=== PATIENT | male | born 1985 | race American Indian/Alaskan Native ===

== ENCOUNTER 2017-07-15 01:36 | Emergency (ER) | payer SELFPAY ==
--- NOTE | 2017-07-15 04:20 | XRay Report ---
FINAL REPORT PROCEDURE: XR CHEST ROUTINE 2V TECHNIQUE: PA and lateral chest radiographs were obtained. CPT 93376 HISTORY: chest injury COMPARISON: No prior studies are available for comparison. FINDINGS: Heart: Normal. Mediastinum/Vessels: Normal. Lungs/Pleural space: Normal. Bony thorax: No acute osseous abnormality. Other: IMPRESSION: Normal examination.
--- NOTE | 2017-07-15 07:51 | Emergency Department Report ---
HPI - General Chief Complaint: Chest Pain Time Seen by Provider: 07/15/17 07:36 - HPI HPI: This is a 32 year-old male presents to the emergency department with complaint of a four-day history of pain to the right lower anterior chest, around the area of "my floating rib" that he says feels like it is fractured but also has been dislocating. He says that he feels a pop when he does certain movements and then has extreme pain. He has a stretcher certain way and it will pop back into place. He has a history of right rib injury from 2 years ago. 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 He denies any shortness of breath, fever, nausea, vomiting. He does not have any other past medical history. He does not have a primary care physician. He has been using ice but otherwise has not taken any medication for his symptoms. ED Past Medical Hx - Past Medical History Previous Medical History?: No - Surgical History Past Surgical History?: No - Social History Smoking Status: Never Smoker Substance Use Type: None ED Review of Systems ROS: Stated complaint: RIB INJURY Other details as noted in HPI Comment: All other systems reviewed and negative Constitutional: denies: chills, fever Eyes: denies: eye pain, eye discharge, vision change ENT: denies: ear pain, throat pain Respiratory: denies: cough, shortness of breath, wheezing Cardiovascular: chest pain (right lower rib pain). denies: edema Gastrointestinal: denies: abdominal pain, nausea, diarrhea Genitourinary: denies: urgency, dysuria Musculoskeletal: denies: back pain, joint swelling, arthralgia Skin: denies: rash, lesions Neurological: denies: headache, weakness, paresthesias Physical Exam - Physical Exam Vital Signs: Vital Signs 07/15/17 02:59 Temperature 97.9 F Pulse Rate 64 Blood Pressure 122/81 O2 Sat by Pulse 98 Oximetry Physical Exam: GENERAL: The patient is well-developed well-nourished. HENT: Normocephalic. Atraumatic. Patient has moist mucous membranes. EYES: Extraocular motions are intact. Pupils equal reactive to light bilaterally. NECK: Supple. Trachea is midline. CHEST/LUNGS: Clear to auscultation. There is no respiratory distress noted. Unable to reproduce the patient's right lower rib pain to palpation. HEART/CARDIOVASCULAR: Regular. There is no tachycardia. There is no murmur. ABDOMEN: Abdomen is soft, nontender. Patient has normal bowel sounds. There is no abdominal distention. SKIN: Skin is warm and dry. NEURO: The patient is awake, alert, and oriented. The patient is cooperative. The patient has no focal neurologic deficits. The patient has normal speech. MUSCULOSKELETAL: There is no tenderness or deformity. There is no limitation range of motion. There is no evidence of acute injury. ED Course Vital Signs 07/15/17 02:59 Temperature 97.9 F Pulse Rate 64 Blood Pressure 122/81 O2 Sat by Pulse 98 Oximetry ED Medical Decision Making - Radiology Data Radiology results: report reviewed, image reviewed interpreted by me: Chest x-ray does not show any acute process. There are no pleural effusions, obvious pneumonia and there is no pneumothorax. CT SCAN OF THE CHEST WITH CONTRAST: Lower right chest pain. Heart size is normal. There is no evidence of adenopathy within the mediastinum. Pulmonary bryce are free of any mass and the lungs are clear of infiltrates. The pleura is unremarkable. No masses involve the chest wall. No abnormalities are noted within the upper abdomen. The adrenal glands are normal. IMPRESSION: Normal CT scan of the chest. Transcribed By: MADELEINE Dictated By: FELIX CAM MD Electronically Authenticated By: FELIX CAM MD Signed Date/Time: 07/15/17 1056 - Medical Decision Making Patient appears to have some issue where he has a transient rib dislocation and reduction or some pain towards his right lower floating rib. However on x-ray there was no sign of any fracture or any other abnormalities. CT scan of the chest was done without contrast and also does not show any acute process. I believe that the patient does have some issue but I have been unable to reproduce the pain and/or the dislocation has not occurred while he has been in the emergency department. If he has further concerns, he may need an MRI but this can be done on outpatient basis. He has been given a referral for orthopedic groups. It has been suggested to him that he avoid any further grappling or competition until follow-up with these specialists or a primary care doctor. He will return to the ER with any worsening of his symptoms or any acute distress. - Differential Diagnosis rib fracture, rib dislocation, costochondritis Critical Care Time: No Critical care attestation.: If time is entered above; I have spent that time in minutes in the direct care of this critically ill patient, excluding procedure time. ED Disposition Clinical Impression: Rib pain on right side Disposition: - TO HOME OR SELFCARE Is pt being admited?: No Condition: Stable Instructions: Costochondritis (ED) Additional Instructions: You were seen today for intermittent right lower rib pain. With the chest x- ray and CT scan we are unable to find any abnormalities at this time. I have given him a referral for 2 different orthopedists. Return to the emergency department with any worsening of your symptoms or any acute distress. Referrals: PRIMARY MD TAZ [Primary Care Provider] - 3-5 Days FELIX DOMINGO MD [Staff Physician] - 3-5 Days [facility]] - 3-5 Days Time of Disposition: 11:35
--- NOTE | 2017-07-15 11:14 | Cat Scan Report ---
CT SCAN OF THE CHEST WITH CONTRAST: Lower right chest pain. Heart size is normal. There is no evidence of adenopathy within the mediastinum. Pulmonary bryce are free of any mass and the lungs are clear of infiltrates. The pleura is unremarkable. No masses involve the chest wall. No abnormalities are noted within the upper abdomen. The adrenal glands are normal. IMPRESSION: Normal CT scan of the chest.
[2017-07-15 12:39] VITALS: BP 115/72
== END 2017-07-15 12:40 | disposition home or self-care (01) ==
LOC: ED 01:36
DX: R07.81 Pleurodynia (principal)
CPT/HCPCS: 71046; 71250